=== PATIENT | female | born 1990 | race African-American/Black ===

== ENCOUNTER 2016-08-01 10:49 | Emergency (ER) | payer MEDICAID ==
[2016-08-01 11:11] VITALS: BP 110/70
[2016-08-01] MEDS ORDERED: Benzonatate 100 MG Cap PO ONE (12:05)
--- NOTE | 2016-08-01 12:07 | EDM.PDOC ---
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 In addition patient has been experiencing a dry cough keeping her up most hours of the evening. She did vomit times one today secondary to cough induced. She has not been taking any [id number] medications for the cough. She was seen by a provider at [facility] this past weekend placed on promethazine for nausea which she has been taking with some relief. She notes mild epigastric abdominal discomfort with coughing. She's noticed no change in appetite or worsening of discomfort with eating. She denies any fevers/chills, shortness of breath, chest pain, nausea/vomiting, diarrhea, constipation, vaginal bleeding, or abnormal vaginal discharge. She offers no complaints at this time. patient's last scheduled cycle was June 30, 2016. Concepcin date July 14, 2016. Gestational age of 4 weeks and 4 days. Due date is 04/16/17. 4 para 2 miscarriages one zero. 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 ED EXAM, GENERAL - Physical Exam Exam: See Below Exam Limited By: No Limitations General Appearance: Alert, WD/WN, No Apparent Distress Ears: Normal External Exam, Normal Canal, Hearing Grossly Normal, Normal TMs Nose: Normal Inspection, Normal Mucosa, No Blood Throat/Mouth: Normal Inspection, Normal Oropharynx, Normal Voice, No Airway Compromise Head: Atraumatic, Normocephalic Neck: Normal Inspection, Supple, Non-Tender, Full Range of Motion. No: Lymphadenopathy (L), Lymphadenopathy (R) Respiratory/Chest: No Respiratory Distress, Lungs Clear, Normal Breath Sounds, No Accessory Muscle Use, Chest Non-Tender Cardiovascular: Normal Peripheral Pulses, Regular Rate, Rhythm, No Murmur Peripheral Pulses: 2+: Radial (L) GI/Abdominal: Normal Bowel Sounds, Soft, No Organomegaly, No Distention, Tender (suprapubic region) Back Exam: Normal Inspection. No: CVA Tenderness (L), CVA Tenderness (R) Extremities: Normal Inspection Neurological: Alert, Oriented, CN II-XII Intact, Normal Cognition, No Motor/ Sensory Deficits Psychiatric: Normal Affect, Normal Mood Skin Exam: Warm, Dry, Intact, Normal Color Course - Vital Signs Last Recorded V/S: Last Vital Signs Temp 99.0 F 08/01/16 11:07 Pulse 79 08/01/16 11:07 Resp 18 08/01/16 11:07 BP 110/70 08/01/16 11:07 Pulse Ox 100 08/01/16 11:07 - Orders/Labs/Meds Orders: Active Orders 24 hr Category Date Time Status CULTURE URINE [RM] Stat Lab 08/01/16 13:19 Uncollected Labs: Laboratory Tests 08/01/16 Range/Units 11:55 Urine Color Yellow (Yellow) Urine Appearance Slt cloudy H (Clear) Urine pH 6.5 (5.0-8.0) Ur Specific Jones > or = 1.030 (1.005-1.030) Urine Protein 1+ H (Negative) Urine Glucose (UA) Negative (Negative) Urine Ketones Negative (Negative) Urine Occult Blood Negative (Negative) Urine Nitrite Negative (Negative) Urine Bilirubin Negative (Negative) Urine Urobilinogen 1.0 (0.2-1.0) Ur Leukocyte Esterase 1+ H (Negative) Urine RBC 5-10 H (0-5) /hpf Urine WBC 5-10 H (0-5) /hpf Urine WBC Clumps Not seen (NOT SEEN) /hpf Ur Epithelial Cells 20-30 H (0-5) /hpf Ur Transition Epith Cell 0-5 (0-5) Urine Bacteria Moderate H (FEW) /hpf Urine Mucus Few (FEW) /hpf Urine Yeast Not seen (NOT SEEN) Meds: Medications Discontinued Medications Generic Name Dose Route Start Last Admin Trade Name Freq PRN Reason Stop Dose Admin Benzonatate 100 mg 08/01/16 12:05 08/01/16 12:38 Tessalon Perles PO 08/01/16 12:06 100 mg ONETIME ONE Administration Nitrofurantoin Macrocrystals 100 mg 08/01/16 13:19 08/01/16 13:32 Macrobid PO 08/01/16 13:20 100 mg ONETIME ONE Administration - Re-Assessments/Exams Free Text/Narrative Re-Assessment/Exam: 08/01/16 12:06 Ordered Tessalon Perles 100 mg p.o., and UA. 08/01/16 13:23 UA revealed 6 Estrace 1+, rbc's 5-10, but he receives out of 10, epithelial 20-30, bacteria moderate. Findings are concerning for contamination. Urine culture has been obtained.order Macrobid 100 mg p.o. x1. We'll discharge patient home with instructions for UTI and also bronchitis. Prescription for Macrobid and Tessalon Perles were provided. Departure - Departure Time of Disposition: 13:24 Disposition: Home, Self-Care 01 Condition: good Clinical Impression: Bronchitis UTI (urinary tract infection) Qualifiers: Urinary tract infection type: site unspecified Hematuria presence: with hematuria Qualified Code(s): N39.0 - Urinary tract infection, site not specified - Discharge Information Prescriptions: Benzonatate [Tessalon Perle] 100 mg PO BID PRN #10 capsule PRN Reason: Cough Nitrofurantoin Monohyd/M-Cryst [Macrobid 100 mg Capsule] 100 mg PO BID #10 capsule Instructions: Urinary Tract Infection, Adult, Acute Bronchitis Referrals: PCP,None [Primary Care Provider] - Forms: ED Department Discharge, Return to Work/School Form Additional Instructions: Urinalysis came back with questions for possible contamination. Urine cultures was obtained. Due to symptoms and clinical findings we'll go ahead and treat you for a urinary tract infection with Macrobid 100 mg twice a day for 5 days. In addition respiratory complaints most likely viral and thus symptomatic treatment is appropriate. For the cough will utilize Tessalon Perles 100 mg twice a day as needed for cough. Push the fluids. Ensure adequate rest. Followup with primary care provider this coming week for reevaluation if symptoms persist. Return to you for any new worsening symptoms. - My Orders Last 24 Hours: My Active Orders 08/01/16 13:19 CULTURE URINE [RM] Stat - Assessment/Plan Last 24 Hours: My Active Orders 08/01/16 13:19 CULTURE URINE [RM] Stat
[2016-08-01] MEDS ORDERED: Nitrofurantoin Monohydrate/Macrocrystalline 100 MG Cap PO ONE (13:19)
== END 2016-08-01 13:40 | disposition home or self-care (01) ==
LOC: JD.ED 10:49
DX: O23.41 Unspecified infection of urinary tract in pregnancy, first trimester (principal); O99.511 Diseases of the respiratory system complicating pregnancy, first trimester; J40 Bronchitis, not specified as acute or chronic; Z3A.01 Less than 8 weeks gestation of pregnancy
CPT/HCPCS: 81001; 99284; A9270; 99283

== ENCOUNTER 2017-03-24 07:00 | Inpatient (IN) | payer MEDICAID ==
[2017-03-24] MEDS ORDERED: Ondansetron 4 MG/2 ML SDV IVPUSH PRN (07:06)
[2017-03-24] MEDS ORDERED: Sodium Chloride 0.9% 10 ML Syringe FLUSH PRN (07:06)
[2017-03-24] MEDS ORDERED: Ampicillin 2 GM in Sodium Chloride 0.9% 100 ML IV ONE (07:06)
[2017-03-24] MEDS ORDERED: Nalbuphine 20 MG/1 ML Amp IVPUSH PRN (07:06)
--- NOTE | 2017-03-24 07:11 | PCM.LDHP ---
L&D History of Present Illness - General Date of Service: 03/24/17 Admit Problem/Dx: Patient Status Order with Admit Dx/Problem 03/24/17 07:07 Patient Status [ADT] Routine Admission Diagnosis/Problem Admission Diagnosis/Problem High risk Source of Information: Patient History Limitations: Reports: No Limitations - History of Present Illness Introduction:: Patient is a 27 y/o at 38 6/7 wks presents for IOL. 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 She has completed 2 courses of weekly IM PCN injections for this diagnosis and currently is in her 3rd course due to a persistently elevated RPR titer. She has been seen by maternal medicine on multiple occasions and has had ultrasound assessments that show no concerning findings of congenital syphilis and her baby. On her most recent MFM scan did have a new finding of polyhydramnios. For above reason she presents for induction today. Is otherwise doing well. Has been having bothersome contractions for some time, but increased last night. No bleeding or fluid leaking. Notes good movement. 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 : 4 Para: 2 LMP (Approximate): Hematologic History: Reports: Blood Transfusion(s), Other (See Below) (Sickle cell trait) - Infectious Disease History Infectious Disease History: Reports: Other (See Below) (Syphilis) - Past Surgical History Female Surgical History: Reports: D&C Social & Family History - Tobacco Use Smoking Status *Q: Never Smoker Second Hand Smoke Exposure: No - Caffeine Use Caffeine Use: Reports: Soda - Alcohol Use Alcohol Use History: No - Recreational Drug Use Recreational Drug Use: No H&P Review of Systems - Review of Systems: Review Of Systems: See Below General: Reports: No Symptoms Pulmonary: Reports: No Symptoms Cardiovascular: Reports: No Symptoms Gastrointestinal: Reports: Abdominal Pain Genitourinary: Reports: No Symptoms Musculoskeletal: Reports: No Symptoms Psychiatric: Reports: No Symptoms Neurological: Reports: No Symptoms L&D Exam - Exam Exam: See Below - OB Specific Contraction Intensity: Irritability Movement: Active Heart Tones: Present Heart Tones per Min: 140 Heart Rate (FHR) Variability: Moderate (6-25 bmp) Presentation: Vertex - Miller Score Miller Score Cervix Position: Posterior Miller Score Consistency: Soft Miller Score Effacement: >80% Miller Score Dilation: 3-4 cm Miller Score 's Station: -2 Miller Score Total: 8 - Exam General: Alert, Oriented, Cooperative Lungs: Clear to Auscultation, Normal Respiratory Effort Cardiovascular: Regular Rate, Regular Rhythm GI/Abdominal Exam: Soft, Non-Tender Genitourinary: Normal external exam Extremities: Normal Inspection Skin: Warm, Dry, Intact - Patient Data Result Diagrams: 03/24/17 07:27 - Problem List (1) Syphilis of mother during SNOMED Code(s): 14383954 ICD Code: O98.119 - SYPHILIS COMPLICATING , UNSPECIFIED TRIMESTER Status: Acute Current Visit: Yes (2) Polyhydramnios affecting SNOMED Code(s): 86803584 ICD Code: O40.9XX0 - POLYHYDRAMNIOS, UNSP TRIMESTER, NOT APPLICABLE OR UNSP Status: Acute Current Visit: Yes (3) GBS (group B Streptococcus carrier), +RV culture, currently SNOMED Code(s): 8978116252991, 2575054491051 ICD Code: O99.820 - STREPTOCOCCUS B CARRIER STATE COMPLICATING Status: Acute Current Visit: Yes Problem List Initiated/Reviewed/Updated: Yes Orders Last 24hrs: Active Orders 24 hr Category Date Time Status Patient Status [ADT] Routine ADT 03/24/17 07:07 Ordered Activity as Tolerated [RC] PFP Care 03/24/17 07:06 Ordered Communication Order [RC] ASDIRECTED Care 03/24/17 07:06 Ordered Communication Order [RC] ASDIRECTED Care 03/24/17 07:06 Ordered Communication Order [RC] ASDIRECTED Care 03/24/17 07:06 Ordered Heart Tones [RC] ASDIRECTED Care 03/24/17 07:09 Ordered Monitoring [RC] INTERMITTENT Care 03/24/17 07:06 Ordered Notify Provider [RC] ASDIRECTED Care 03/24/17 07:06 Ordered Notify Provider [RC] PFP Care 03/24/17 07:06 Ordered Notify Provider [RC] PRN Care 03/24/17 07:06 Ordered Peripheral IV Care [RC] . DIRECTED Care 03/24/17 07:09 Ordered Vaginal Exam [RC] ASDIRECTED Care 03/24/17 07:06 Ordered Vital Signs [RC] ASDIRECTED Care 03/24/17 07:06 Ordered Vital Signs [RC] PER UNIT ROUTINE Care 03/24/17 07:06 Ordered Regular Diet [DIET] Diet 03/24/17 Breakfast Ordered CBC W/O DIFF,HEMOGRAM [HEME] Routine Lab 03/24/17 07:06 Ordered TYPE AND SCREEN [BBK] Routine Lab 03/24/17 07:06 Ordered Ampicillin 1 gm Med 03/24/17 07:15 Ordered Sodium Chloride 0.9% [Normal Saline] 100 ml IV Q4H Ampicillin 2 gm Med 03/24/17 07:06 Ordered Sodium Chloride 0.9% [Normal Saline] 100 ml IV ONETIME Lactated Ringers [Ringers, Lactated] 1,000 ml Med 03/24/17 07:15 Ordered IV ASDIRECTED Nalbuphine [Nubain] Med 03/24/17 07:06 Ordered 10 mg IVPUSH Q2H PRN Ondansetron [Zofran] Med 03/24/17 07:06 Ordered 4 mg IVPUSH Q4H PRN Oxytocin/Lactated Ringers [Pitocin in LR 10 Units/1,000 Med 03/24/17 07:15 Ordered ML] 10 unit in 1,000 ml IV .CONTINUOUS Oxytocin/Lactated Ringers [Pitocin in LR 10 Units/1,000 Med 03/24/17 07:15 Ordered ML] 10 unit in 1,000 ml IV TITRATE Sodium Chloride 0.9% [Saline Flush] Med 03/24/17 07:06 Ordered 10 ml FLUSH ASDIRECTED PRN Electronic Heart Tones Ext w TOCO [WOMSER] Oth 03/24/17 07:06 Ordered Routine Electronic Heart Tones Internal [WOMSER] Per Unit Oth 03/24/17 07:06 Ordered Routine Peripheral IV Insertion Adult [OM.PC] Routine Oth 03/24/17 07:06 Ordered Resuscitation Status Routine Resus Stat 03/24/17 07:06 Ordered Assessment/Plan Comment:: 27 y/o at 38 6/7 wks presents for IOL * CBC, T&S * GBS positive. Will start Ampicillin for GBS prophylaxis * Pitocin to be started. AROM when possible * Will need 3rd dose of IM PCN tomorrow to finish treatment course for Syphilis
[2017-03-24] MEDS ORDERED: Oxytocin/Lactated Ringers 10 UNIT/1,000 ML BAG IV SCH (07:15)
[2017-03-24] MEDS: Lactated Ringers 1,000 ML IV SCH ×2 (07:50→18:25)
[2017-03-24] MEDS: Ampicillin 1 GM in Sodium Chloride 0.9% 100 ML IV SCH ×2 (11:27→15:17)
[2017-03-24] MEDS ORDERED: fentaNYL 100 MCG/2 ML SDV EPIDUR PRN (14:12)
[2017-03-24] MEDS ORDERED: ePHEDrine 50 MG/ML SDV IVPUSH PRN (14:12)
[2017-03-24] MEDS ORDERED: diphenhydrAMINE 50 MG/ML SDV IVPUSH PRN (14:12)
[2017-03-24] MEDS ORDERED: Bupivacaine/fentaNYL/NS 100 ML Bag EPIDUR SCH (14:15)
--- NOTE | 2017-03-24 16:45 | PCM.PNLD ---
Labor Progress Note - VS & Meds Vital Signs: Last Vital Signs Temp 36.8 C 03/24/17 07:35 Pulse 96 03/24/17 07:35 Resp 16 03/24/17 07:35 BP 120/62 03/24/17 07:35 Pulse Ox 99 03/24/17 07:35 Active Medications: Current Medications Diphenhydramine HCl (Benadryl) 25 mg IVPUSH Q6H PRN PRN Reason: Itching Ephedrine Sulfate (Ephedrine Sulfate) 5 mg IVPUSH ASDIRECTED PRN PRN Reason: HYPOTENTSION Fentanyl (Sublimaze) 100 mcg EPIDUR Q3H PRN PRN Reason: PAIN Fentanyl/Bupivacaine HCl (Fentanyl/Bupivacaine/Ns 2 Mcg-0.125% 100 Ml) 100 ml EPIDUR ASDIRECTED CYNTHIA Ampicillin Sodium 1 gm/ Sodium (Chloride) 100 mls @ 200 mls/hr IV Q4H CYNTHIA Last Admin: 03/24/17 15:17 Dose: 200 mls/hr Lactated Ringer's (Ringers, Lactated) 1,000 mls @ 40 mls/hr IV ASDIRECTED CYNTHIA Last Admin: 03/24/17 07:50 Dose: 40 mls/hr Oxytocin/Lactated Ringer's (Pitocin In Lr 10 Units/1,000 Ml) 10 unit in 1,000 mls @ 12 mls/hr IV TITRATE CYNTHIA; 2 MUNITS/MIN PRN Reason: Protocol Last Titration: 03/24/17 16:17 Dose: 11 munits/min, 66 mls/hr Oxytocin/Lactated Ringer's (Pitocin In Lr 10 Units/1,000 Ml) 10 unit in 1,000 mls @ 500 mls/hr IV .CONTINUOUS CYNTHIA Nalbuphine HCl (Nubain) 10 mg IVPUSH Q2H PRN PRN Reason: Pain (moderate 4-6) Ondansetron HCl (Zofran) 4 mg IVPUSH Q4H PRN PRN Reason: Nausea/Vomiting Sodium Chloride (Saline Flush) 10 ml FLUSH ASDIRECTED PRN PRN Reason: Keep Vein Open Discontinued Medications Ampicillin Sodium 2 gm/ Sodium (Chloride) 100 mls @ 200 mls/hr IV ONETIME ONE Stop: 03/24/17 07:35 Last Admin: 03/24/17 07:50 Dose: 200 mls/hr - Uterine Contractions Uterine Monitoring Mode: External [place] Contraction Intensity: Moderate - Monitoring Monitor Mode: External Ultrasound Heart Rate (FHR) Baseline: 135 Heart Rate (FHR) Variability: Moderate (6-25 bmp) Accelerations: Present, 15x15 Decelerations: None Strip Review: Category I - Vaginal Exam Dilation (cm): 4 Effacement (Percent): 80 Station: -2 Cervical Position: Posterior Sterile Vaginal Exam Performed By: Zaira Medina - Labor Progress (Free Text) Labor Progress: Doing well. Pitocin at 11. S/p 3 doses of Ampicillin. AROM performed with release of large amount of clear fluid. Continue present management.
--- NOTE | 2017-03-24 16:45 | PCM.PNLD ---
Labor Progress Note - VS & Meds Vital Signs: Last Vital Signs Temp 36.8 C 03/24/17 07:35 Pulse 96 03/24/17 07:35 Resp 16 03/24/17 07:35 BP 120/62 03/24/17 07:35 Pulse Ox 99 03/24/17 07:35 Active Medications: Current Medications Diphenhydramine HCl (Benadryl) 25 mg IVPUSH Q6H PRN PRN Reason: Itching Ephedrine Sulfate (Ephedrine Sulfate) 5 mg IVPUSH ASDIRECTED PRN PRN Reason: HYPOTENTSION Fentanyl (Sublimaze) 100 mcg EPIDUR Q3H PRN PRN Reason: PAIN Fentanyl/Bupivacaine HCl (Fentanyl/Bupivacaine/Ns 2 Mcg-0.125% 100 Ml) 100 ml EPIDUR ASDIRECTED CYNTHIA Ampicillin Sodium 1 gm/ Sodium (Chloride) 100 mls @ 200 mls/hr IV Q4H CYNTHIA Last Admin: 03/24/17 15:17 Dose: 200 mls/hr Lactated Ringer's (Ringers, Lactated) 1,000 mls @ 40 mls/hr IV ASDIRECTED CYNTHIA Last Admin: 03/24/17 07:50 Dose: 40 mls/hr Oxytocin/Lactated Ringer's (Pitocin In Lr 10 Units/1,000 Ml) 10 unit in 1,000 mls @ 12 mls/hr IV TITRATE CYNTHIA; 2 MUNITS/MIN PRN Reason: Protocol Last Titration: 03/24/17 16:17 Dose: 11 munits/min, 66 mls/hr Oxytocin/Lactated Ringer's (Pitocin In Lr 10 Units/1,000 Ml) 10 unit in 1,000 mls @ 500 mls/hr IV .CONTINUOUS CYNTHIA Nalbuphine HCl (Nubain) 10 mg IVPUSH Q2H PRN PRN Reason: Pain (moderate 4-6) Ondansetron HCl (Zofran) 4 mg IVPUSH Q4H PRN PRN Reason: Nausea/Vomiting Sodium Chloride (Saline Flush) 10 ml FLUSH ASDIRECTED PRN PRN Reason: Keep Vein Open Discontinued Medications Ampicillin Sodium 2 gm/ Sodium (Chloride) 100 mls @ 200 mls/hr IV ONETIME ONE Stop: 03/24/17 07:35 Last Admin: 03/24/17 07:50 Dose: 200 mls/hr - Uterine Contractions Uterine Monitoring Mode: External [place] Contraction Intensity: Mild to Moderate - Monitoring Monitor Mode: External Ultrasound Heart Rate (FHR) Baseline: 135 Heart Rate (FHR) Variability: Moderate (6-25 bmp) Accelerations: Present, 15x15 Decelerations: None Strip Review: Category I - Vaginal Exam Dilation (cm): 3-4 Effacement (Percent): 80 Station: -2 Cervical Position: Posterior Sterile Vaginal Exam Performed By: Zaira Medina - Labor Progress (Free Text) Labor Progress: Doing well. Feeling some pain with contractions. Attempted to perform AROM, but station somewhat more ballotable at this time and patient doesn't tolerate exam well. Will continue with pitocin (currently at 5) and try again at next assessment.
[2017-03-24] MEDS: Oxytocin/Lactated Ringers 10 UNIT/1,000 ML BAG IV SCH ×2 (19:19→20:02)
[2017-03-24] MEDS ORDERED: Misoprostol 200 MCG Tab ONE (19:25)
[2017-03-24] MEDS ORDERED: Misoprostol 200 MCG Tab PO STA (19:41)
--- NOTE | 2017-03-24 19:51 | PCM.DEL ---
L & D Note - General Info Date of Service: 03/24/17 - Delivery Note Labor: Induced by ARM, Induced by Oxytocin Delivery Outcome: Livebirth Infant Delivery Method: Spontaneous Vaginal Delivery-Single Infant Delivery Mode: Spontaneous Presentation: Right Occiput Anterior (LUPILLO) Nuchal Cord: None Anesthesia Type: None Amniotic Fluid Description: Clear Episiotomy Type: None Laceration: None Placenta: Intact, Spontaneous Cord: 3 Vessels Estimated Blood Loss: 600 Resuscitation Needed: Yes [place]: Suctioned, Bulb Syringe, Stimulated, Warmed, [place] Used, Warmer Used Score 1 min: 8 Score 5 min: 9 Delivery Comments (Free Text/Narrative):: Patient found to be complete and began pushing. With maternal pushing effort head delivered from an LUPILLO presentation. No nuchal cord present. With gentle downward traction the shoulders and body delivered. placed on maternal abdomen. Cord clamped and cut. Cord blood obtained. Placenta allowed time to separate and expelled. She did have brisk bleeding and so was given 600 mcg of buccal cytotec. Bleeding responded well to this, IV pitocin, and aggressive fundal massage. - Patient Data Vitals - Most Recent: Last Vital Signs Temp 36.8 C 03/24/17 07:35 Pulse 96 03/24/17 07:35 Resp 16 03/24/17 07:35 BP 120/62 03/24/17 07:35 Pulse Ox 99 03/24/17 07:35 Weight - Most Recent: 80.739 kg I&O - Last 24 Hours: Intake & Output 03/24/17 03/24/17 03/24/17 06:59 14:59 22:59 Intake Total 120 180 Balance 120 180 Lab Results Last 24 Hours: Laboratory Results - last 24 hr 03/24/17 03/24/17 Range/Units 07:27 07:27 WBC 7.32 (3.98-10.04) K/mm3 RBC 3.99 (3.98-5.22) M/mm3 Hgb 11.0 L (11.2-15.7) gm/L Hct 33.3 L (34.1-44.9) % MCV 83.5 (79.4-94.8) fl MCH 27.6 (25.6-32.2) pg MCHC 33.0 (32.2-35.5) g/dl RDW Std Deviation 42.2 (36.4-46.3) fL Plt Count 199 (182-369) K/mm3 MPV 9.5 (9.4-12.3) fl Blood Type O POSITIVE Gel Antibody Screen Positive Med Orders - Current: Current Medications Diphenhydramine HCl (Benadryl) 25 mg IVPUSH Q6H PRN PRN Reason: Itching Ephedrine Sulfate (Ephedrine Sulfate) 5 mg IVPUSH ASDIRECTED PRN PRN Reason: HYPOTENTSION Fentanyl (Sublimaze) 100 mcg EPIDUR Q3H PRN PRN Reason: PAIN Fentanyl/Bupivacaine HCl (Fentanyl/Bupivacaine/Ns 2 Mcg-0.125% 100 Ml) 100 ml EPIDUR ASDIRECTED CYNTHIA Ampicillin Sodium 1 gm/ Sodium (Chloride) 100 mls @ 200 mls/hr IV Q4H CYNTHIA Last Admin: 03/24/17 15:17 Dose: 200 mls/hr Lactated Ringer's (Ringers, Lactated) 1,000 mls @ 40 mls/hr IV ASDIRECTED CYNTHIA Last Admin: 03/24/17 18:25 Dose: 40 mls/hr Oxytocin/Lactated Ringer's (Pitocin In Lr 10 Units/1,000 Ml) 10 unit in 1,000 mls @ 12 mls/hr IV TITRATE CYNTHIA; 2 MUNITS/MIN PRN Reason: Protocol Last Titration: 03/24/17 18:24 Dose: 0 munits/min, 0 mls/hr Oxytocin/Lactated Ringer's (Pitocin In Lr 10 Units/1,000 Ml) 10 unit in 1,000 mls @ 500 mls/hr IV .CONTINUOUS CYNTHIA Nalbuphine HCl (Nubain) 10 mg IVPUSH Q2H PRN PRN Reason: Pain (moderate 4-6) Last Admin: 03/24/17 17:47 Dose: 10 mg Ondansetron HCl (Zofran) 4 mg IVPUSH Q4H PRN PRN Reason: Nausea/Vomiting Sodium Chloride (Saline Flush) 10 ml FLUSH ASDIRECTED PRN PRN Reason: Keep Vein Open Discontinued Medications Ampicillin Sodium 2 gm/ Sodium (Chloride) 100 mls @ 200 mls/hr IV ONETIME ONE Stop: 03/24/17 07:35 Last Admin: 03/24/17 07:50 Dose: 200 mls/hr Misoprostol (Cytotec) Confirm Administered Dose 600 mcg .ROUTE .STK-MED ONE Stop: 03/24/17 19:26 Misoprostol (Cytotec) 600 mcg PO NOW STA Stop: 03/24/17 19:42 - Problem List & Annotations (1) Syphilis of mother during SNOMED Code(s): 71299656 Code(s): O98.119 - SYPHILIS COMPLICATING , UNSPECIFIED TRIMESTER Status: Acute Current Visit: Yes (2) Polyhydramnios affecting SNOMED Code(s): 24666868 Code(s): O40.9XX0 - POLYHYDRAMNIOS, UNSP TRIMESTER, NOT APPLICABLE OR UNSP Status: Acute Current Visit: Yes (3) GBS (group B Streptococcus carrier), +RV culture, currently SNOMED Code(s): 1179075155304, 5815500300594 Code(s): O99.820 - STREPTOCOCCUS B CARRIER STATE COMPLICATING Status: Acute Current Visit: Yes (4) Vaginal delivery SNOMED Code(s): 966813072 Code(s): O80 - ENCOUNTER FOR FULL-TERM UNCOMPLICATED DELIVERY Status: Acute Current Visit: Yes (5) hemorrhage SNOMED Code(s): 65787232 Code(s): O72.1 - OTHER IMMEDIATE HEMORRHAGE Status: Acute Current Visit: Yes Qualifiers: hemorrhage type: other immediate Qualified Code(s): O72.1 - Other immediate hemorrhage - Problem List Review Problem List Initiated/Reviewed/Updated: Yes - My Orders Last 24 Hours: My Active Orders 03/24/17 07:06 Activity as Tolerated [RC] PFP Communication Order [RC] ASDIRECTED Communication Order [RC] ASDIRECTED Communication Order [RC] ASDIRECTED Monitoring [RC] INTERMITTENT Notify Provider [RC] ASDIRECTED Notify Provider [RC] PFP Notify Provider [RC] PRN Vaginal Exam [RC] ASDIRECTED Vital Signs [RC] ASDIRECTED Nalbuphine [Nubain] 10 mg IVPUSH Q2H PRN Ondansetron [Zofran] 4 mg IVPUSH Q4H PRN Sodium Chloride 0.9% [Saline Flush] 10 ml FLUSH ASDIRECTED PRN Electronic Heart Tones Ext w TOCO [WOMSER] Routine Electronic Heart Tones Internal [WOMSER] Per Unit Routine Peripheral IV Insertion Adult [OM.PC] Routine Resuscitation Status Routine 03/24/17 07:07 Patient Status [ADT] Routine 03/24/17 07:09 Heart Tones [RC] ASDIRECTED Peripheral IV Care [RC] . DIRECTED 03/24/17 07:15 Lactated Ringers [Ringers, Lactated] 1,000 ml IV ASDIRECTED Oxytocin/Lactated Ringers [Pitocin in LR 10 Units/1,000 ML] 10 unit in 1,000 ml IV .CONTINUOUS Oxytocin/Lactated Ringers [Pitocin in LR 10 Units/1,000 ML] 10 unit in 1,000 ml IV TITRATE 03/24/17 07:27 ANTIBODY IDENTIFICATION [BBK] Routine TYPE AND SCREEN [BBK] Routine 03/24/17 11:00 Ampicillin 1 gm Sodium Chloride 0.9% [Normal Saline] 100 ml IV Q4H 03/24/17 19:41 Patient Status Manage Transfer [TRANSFER] Routine 03/24/17 Breakfast Regular Diet [DIET] - Assessment Assessment:: 27 y/o G4 now P3013 PPD#0 from at 38 6/7 wks - Plan Plan:: * Routine cares * Will need 3rd dose of IM PCN tomorrow to finish treatment course for Syphilis * Anticipate discharge home in 1-2 days
[2017-03-24] MEDS ORDERED: Lanolin 100% Cream 7 GM Tube TOP PRN (19:57)
[2017-03-24] MEDS ORDERED: Acetaminophen 325 MG Tab PO PRN (19:57)
[2017-03-24] MEDS ORDERED: Docusate Sodium 100 MG Cap PO PRN (19:57)
[2017-03-24] MEDS ORDERED: Witch Hazel Medicated Pads 100/Jar TOP PRN (19:57)
[2017-03-24] MEDS ORDERED: Benzocaine/Menthol 20%-0.5% Spray 56 GM Canister TOP PRN (19:57)
[2017-03-24] MEDS: Ibuprofen 600 MG Tab PO PRN (20:11)
[2017-03-25] MEDS: Ibuprofen 600 MG Tab PO PRN ×3 (03:17→15:43)
--- NOTE | 2017-03-25 08:52 | PCM.PNPP ---
- General Info Date of Service: 03/25/17 Functional Status: Reports: Pain Controlled, Tolerating Diet, Ambulating, Urinating - Review of Systems General: Reports: No Symptoms Pulmonary: Reports: No Symptoms Cardiovascular: Reports: No Symptoms Gastrointestinal: Reports: No Symptoms Genitourinary: Reports: No Symptoms Musculoskeletal: Reports: No Symptoms - Patient Data Vital Signs - Most Recent: Last Vital Signs Temp 36.3 C 03/25/17 03:16 Pulse 90 03/25/17 03:16 Resp 15 03/25/17 03:16 BP 93/52 L 03/25/17 03:16 Pulse Ox 98 03/25/17 03:16 Weight - Most Recent: 80.739 kg I&O - Last 24 Hours: Intake & Output 03/24/17 03/25/17 03/25/17 22:59 06:59 14:59 Intake Total 180 1999 Balance 180 1999 Med Orders - Current: Current Medications Acetaminophen (Tylenol) 650 mg PO Q4H PRN PRN Reason: mild pain or fever Last Admin: 03/24/17 20:11 Dose: 650 mg Benzocaine/Menthol (Dermoplast Pain Relief [place]) 0 gm TOP ASDIRECTED PRN PRN Reason: Perineal Comfort Measure Last Admin: 03/24/17 20:10 Dose: 1 canister Docusate Sodium (Colace) 100 mg PO BID PRN PRN Reason: Constipation Emollient Ointment (Lansinoh Hpa) 0 gm TOP ASDIRECTED PRN PRN Reason: Sore Nipples Ibuprofen (Motrin) 600 mg PO Q6H PRN PRN Reason: Mild pain or fever Last Admin: 03/25/17 03:17 Dose: 600 mg Penicillin G Benzathine (Bicillin L-A) 2.4 millunits IM ONETIME ONE Stop: 03/25/17 15:01 Witch Shonna (Tucks) 1 pad TOP ASDIRECTED PRN PRN Reason: Hemorrhoid pain Last Admin: 03/24/17 20:10 Dose: 1 tub Discontinued Medications Diphenhydramine HCl (Benadryl) 25 mg IVPUSH Q6H PRN PRN Reason: Itching Ephedrine Sulfate (Ephedrine Sulfate) 5 mg IVPUSH ASDIRECTED PRN PRN Reason: HYPOTENTSION Fentanyl (Sublimaze) 100 mcg EPIDUR Q3H PRN PRN Reason: PAIN Fentanyl/Bupivacaine HCl (Fentanyl/Bupivacaine/Ns 2 Mcg-0.125% 100 Ml) 100 ml EPIDUR ASDIRECTED CYNTHIA Ampicillin Sodium 2 gm/ Sodium (Chloride) 100 mls @ 200 mls/hr IV ONETIME ONE Stop: 03/24/17 07:35 Last Admin: 03/24/17 07:50 Dose: 200 mls/hr Ampicillin Sodium 1 gm/ Sodium (Chloride) 100 mls @ 200 mls/hr IV Q4H CYNTHIA Last Admin: 03/24/17 15:17 Dose: 200 mls/hr Lactated Ringer's (Ringers, Lactated) 1,000 mls @ 40 mls/hr IV ASDIRECTED CYNTHIA Last Admin: 03/24/17 18:25 Dose: 40 mls/hr Oxytocin/Lactated Ringer's (Pitocin In Lr 10 Units/1,000 Ml) 10 unit in 1,000 mls @ 12 mls/hr IV TITRATE CYNTHIA; 2 MUNITS/MIN PRN Reason: Protocol Last Titration: 03/24/17 18:24 Dose: 0 munits/min, 0 mls/hr Oxytocin/Lactated Ringer's (Pitocin In Lr 10 Units/1,000 Ml) 10 unit in 1,000 mls @ 500 mls/hr IV .CONTINUOUS CYNTHIA Last Admin: 03/24/17 20:02 Dose: 500 mls/hr Misoprostol (Cytotec) Confirm Administered Dose 600 mcg .ROUTE .STK-MED ONE Stop: 03/24/17 19:26 Last Admin: 03/24/17 19:23 Dose: 600 mcg Misoprostol (Cytotec) 600 mcg PO NOW STA Stop: 03/24/17 19:42 Nalbuphine HCl (Nubain) 10 mg IVPUSH Q2H PRN PRN Reason: Pain (moderate 4-6) Last Admin: 03/24/17 17:47 Dose: 10 mg Ondansetron HCl (Zofran) 4 mg IVPUSH Q4H PRN PRN Reason: Nausea/Vomiting Sodium Chloride (Saline Flush) 10 ml FLUSH ASDIRECTED PRN PRN Reason: Keep Vein Open - Interaction Disposition, : [place] in Room with Family Infant Interaction: Holding Infant Feeding: Bottle Fed Infant Support Person: Significant Other - Recovery Exam Fundal Tone: Firm Fundal Level: At Umbilicus Fundal Placement: Midline Lochia Amount: Small Lochia Color: Rubra/Red Perineum Description: Intact, Minimal Bruising/Swelling Episiotomy/Laceration: None Bladder Status: Voiding - Exam General: Alert, Oriented, Cooperative GI/Abdominal Exam: Soft, Non-Tender Extremities: Normal Inspection Skin: Warm, Dry, Intact - Problem List & Annotations (1) Syphilis of mother during SNOMED Code(s): 51521037 Code(s): O98.119 - SYPHILIS COMPLICATING , UNSPECIFIED TRIMESTER Status: Acute Current Visit: Yes (2) Polyhydramnios affecting SNOMED Code(s): 64833614 Code(s): O40.9XX0 - POLYHYDRAMNIOS, UNSP TRIMESTER, NOT APPLICABLE OR UNSP Status: Acute Current Visit: Yes (3) GBS (group B Streptococcus carrier), +RV culture, currently SNOMED Code(s): 7000230785940, 5842025521659 Code(s): O99.820 - STREPTOCOCCUS B CARRIER STATE COMPLICATING Status: Acute Current Visit: Yes (4) Vaginal delivery SNOMED Code(s): 800958571 Code(s): O80 - ENCOUNTER FOR FULL-TERM UNCOMPLICATED DELIVERY Status: Acute Current Visit: Yes (5) hemorrhage SNOMED Code(s): 76038873 Code(s): O72.1 - OTHER IMMEDIATE HEMORRHAGE Status: Acute Current Visit: Yes Qualifiers: hemorrhage type: other immediate Qualified Code(s): O72.1 - Other immediate hemorrhage - Problem List Review Problem List Initiated/Reviewed/Updated: Yes - My Orders Last 24 Hours: My Active Orders 03/24/17 19:57 Activity as Tolerated [RC] PER UNIT ROUTINE Vital Signs [RC] 04,12,20 Acetaminophen [Tylenol] 650 mg PO Q4H PRN Benzocaine/Menthol [Dermoplast Pain Relief [place]] See Dose Instructions TOP ASDIRECTED PRN Docusate Sodium [Colace] 100 mg PO BID PRN Ibuprofen [Motrin] 600 mg PO Q6H PRN Lanolin [Lansinoh HPA] See Dose Instructions TOP ASDIRECTED PRN Witch Shonna [Tucks] 1 pad TOP ASDIRECTED PRN Assess Lochia [WOMSER] Per Unit Routine Assess Uterine Involution [WOMSER] Per Unit Routine Breast Pump [WOMSER] Per Unit Routine Heat Therapy [OM.PC] PRN Ice Therapy [OM.PC] Per Unit Routine Perineal Care [OM.PC] Per Unit Routine Peripheral IV Discontinue [OM.PC] Routine Sitz Bath [OM.PC] Per Unit Routine 03/24/17 Dinner Regular Diet [DIET] 03/25/17 15:00 Penicillin G Benzathine [Bicillin L-A] 2.4 millunits IM ONETIME ONE 03/25/17 19:57 Heat Therapy [OM.PC] PRN - Assessment Assessment:: 27 y/o G4 now P3013 PPD#1 from at 38 6/7 wks - Plan Plan:: * Routine cares * Bottle feeding * Will need 3rd dose of IM PCN today to finish treatment course for Syphilis. Will follow up with ID . * Anticipate discharge home today vs tomorrow
[2017-03-25] MEDS ORDERED: Penicillin G Benzathine 1,200,000 Units/2 ML Syringe IM ONE (15:00)
[2017-03-26] MEDS: Ibuprofen 600 MG Tab PO PRN ×2 (04:06→12:44)
--- NOTE | 2017-03-26 09:28 | PCM.DCSUM1 ---
Discharge Summary - Hospital Course Free Text/Narrative:: Patient is a 27 year old multiparous female who delivered 2 days ago. was complicated by syphilis for which she received antibiotic therapy. The patient also had group B strep positive status. was, K and also by hydramnios. She delivered a viable, hurley, female with Apgars of 8 and 9 on 03/24/2017. Patient did have some Cytotec 600 g to facilitate uterine tone and decrease bleeding after delivery. She is doing well now. Baby is on antibiotics for a full 10 days and will be staying in the hospital. Mother will be discharged home. period is unremarkable. Patient is bottle feeding. Her vital signs been stable. She has had minimal lochia. She is ambulating well, voiding well and has no significant concerns. She is desiring discharge from hospital as her 5-year-old like her to come home. - Discharge Data Discharge Date: 03/26/17 Discharge Disposition: Home, Self-Care 01 Condition: Good - Patient Instructions Diet: Regular Diet as Tolerated Activity: As Tolerated (No intercourse or tampons until bleeding resolves) Driving: Do Not Drive (2 days) Showering/Bathing: May Shower (May take a bath) Notify Provider of: Fever, Increased Pain, Swelling and Redness, Nausea and/or Vomiting - Discharge Plan Home Medications: Home Meds #103/Iron Fumarate/Fa [ ] 1 dose PO DAILY 08/01/16 [ History] Acyclovir [Zovirax] 1 tab PO Q12HR 03/24/17 [History] Acetaminophen [Tylenol] 650 mg PO Q4H PRN tablet 03/26/17 [Rx] Ibuprofen [IJD: Ibuprofen] 600 mg PO Q6H PRN tablet 03/26/17 [Rx] Referrals: Zaira Medina MD [Primary Care Provider] - (Return to clinic Dr. Medina6 weeks) - Discharge Summary/Plan Comment DC Time >30 min.: No Discharge Summary/Plan Comment: Discharge instructions: 1. Discharge home 2. Diet, activity and follow-up discussed with patient. Recommend regular diet with increased calories and calcium. 3. Precautions given concern increased pain, bleeding, temperature, signs/ symptoms of DVT/PE. 4. Medications per home medication was printed, discussed with and given to the patient. 5. Return to clinic-Dr. Medina at [facility] in 6 weeks. Diagnosis: 1. Term -delivered 2. Syphilis-treated 3. Group B strep positive status Condition: Good - Patient Data Vitals - Most Recent: Last Vital Signs Temp 36.7 C 03/26/17 04:06 Pulse 78 03/26/17 04:06 Resp 13 03/26/17 04:06 BP 104/66 03/26/17 04:06 Pulse Ox 100 03/26/17 04:06 Weight - Most Recent: 80.739 kg I&O - Last 24 hours: Intake & Output 03/25/17 03/26/17 03/26/17 22:59 06:59 14:59 Intake Total 420 Balance 420 Lab Results - Last 24 hrs: Laboratory Results - last 24 hr 03/25/17 Range/Units 14:00 RPR Titer 1:32 RPR Reactive H (NONREACTIVE) Med Orders - Current: Current Medications Acetaminophen (Tylenol) 650 mg PO Q4H PRN PRN Reason: mild pain or fever Last Admin: 03/24/17 20:11 Dose: 650 mg Benzocaine/Menthol (Dermoplast Pain Relief [place]) 0 gm TOP ASDIRECTED PRN PRN Reason: Perineal Comfort Measure Last Admin: 03/24/17 20:10 Dose: 1 canister Docusate Sodium (Colace) 100 mg PO BID PRN PRN Reason: Constipation Emollient Ointment (Lansinoh Hpa) 0 gm TOP ASDIRECTED PRN PRN Reason: Sore Nipples Ibuprofen (Motrin) 600 mg PO Q6H PRN PRN Reason: Mild pain or fever Last Admin: 03/26/17 04:06 Dose: 600 mg Witch Shonna (Tucks) 1 pad TOP ASDIRECTED PRN PRN Reason: Hemorrhoid pain Last Admin: 03/24/17 20:10 Dose: 1 tub Discontinued Medications Diphenhydramine HCl (Benadryl) 25 mg IVPUSH Q6H PRN PRN Reason: Itching Ephedrine Sulfate (Ephedrine Sulfate) 5 mg IVPUSH ASDIRECTED PRN PRN Reason: HYPOTENTSION Fentanyl (Sublimaze) 100 mcg EPIDUR Q3H PRN PRN Reason: PAIN Fentanyl/Bupivacaine HCl (Fentanyl/Bupivacaine/Ns 2 Mcg-0.125% 100 Ml) 100 ml EPIDUR ASDIRECTED CYNTHIA Ampicillin Sodium 2 gm/ Sodium (Chloride) 100 mls @ 200 mls/hr IV ONETIME ONE Stop: 03/24/17 07:35 Last Admin: 03/24/17 07:50 Dose: 200 mls/hr Ampicillin Sodium 1 gm/ Sodium (Chloride) 100 mls @ 200 mls/hr IV Q4H CYNTHIA Last Admin: 03/24/17 15:17 Dose: 200 mls/hr Lactated Ringer's (Ringers, Lactated) 1,000 mls @ 40 mls/hr IV ASDIRECTED CYNTHIA Last Admin: 03/24/17 18:25 Dose: 40 mls/hr Oxytocin/Lactated Ringer's (Pitocin In Lr 10 Units/1,000 Ml) 10 unit in 1,000 mls @ 12 mls/hr IV TITRATE CYNTHIA; 2 MUNITS/MIN PRN Reason: Protocol Last Titration: 03/24/17 18:24 Dose: 0 munits/min, 0 mls/hr Oxytocin/Lactated Ringer's (Pitocin In Lr 10 Units/1,000 Ml) 10 unit in 1,000 mls @ 500 mls/hr IV .CONTINUOUS CYNTHIA Last Admin: 03/24/17 20:02 Dose: 500 mls/hr Misoprostol (Cytotec) Confirm Administered Dose 600 mcg .ROUTE .STK-MED ONE Stop: 03/24/17 19:26 Last Admin: 03/24/17 19:23 Dose: 600 mcg Misoprostol (Cytotec) 600 mcg PO NOW STA Stop: 03/24/17 19:42 Nalbuphine HCl (Nubain) 10 mg IVPUSH Q2H PRN PRN Reason: Pain (moderate 4-6) Last Admin: 03/24/17 17:47 Dose: 10 mg Ondansetron HCl (Zofran) 4 mg IVPUSH Q4H PRN PRN Reason: Nausea/Vomiting Penicillin G Benzathine (Bicillin L-A) 2.4 millunits IM ONETIME ONE Stop: 03/25/17 15:01 Last Admin: 03/25/17 15:21 Dose: 2.4 millunits Sodium Chloride (Saline Flush) 10 ml FLUSH ASDIRECTED PRN PRN Reason: Keep Vein Open *Q Meaningful Use (DIS) - VTE *Q VTE Criteria *Q: - Stroke *Q Stroke Criteria *Q: - AMI *Q AMI Criteria *Q:
[2017-03-26 13:57] VITALS: BP 126/67
== END 2017-03-26 14:45 | disposition home or self-care (01) | DRG 774 ==
LOC: JD.OBCHECK 07:00 → JD.OB 07:07 → OBSVTOIN 19:19 → JD.OB 19:19
PROVIDERS: ADMIT Obstetrics & Gynecology; ATTEND Obstetrics & Gynecology
PROC: 10E0XZZ Delivery of Products of Conception, External Approach (ICD-10-PCS; principal; 2017-03-24)
PROC: 3E0P7VZ Introduction of Hormone into Female Reproductive, Via Natural or Artificial Opening (ICD-10-PCS; 2017-03-24)
PROC: 10907ZC Drainage of Amniotic Fluid, Therapeutic from Products of Conception, Via Natural or Artificial Opening (ICD-10-PCS; 2017-03-24)
DX: O40.3XX0 Polyhydramnios, third trimester, not applicable or unspecified (principal); O98.12 Syphilis complicating childbirth; O72.1 Other immediate postpartum hemorrhage; O99.824 Streptococcus B carrier state complicating childbirth; Z3A.40 40 weeks gestation of pregnancy; Z37.0 Single live birth
CPT/HCPCS: 36415; 59409; 85027; 86592; 86850; 86870; 86900; 86901; A9270-GY; J0290; J0561; J2300; J2590; J7030; J7120

== ENCOUNTER 2017-03-30 10:43 | Emergency (ER) | payer MEDICAID ==
[2017-03-30 10:58] VITALS: BP 119/80
--- NOTE | 2017-03-30 11:00 | EDM.PDOC ---
ED HPI GENERAL MEDICAL PROBLEM - General Chief Complaint: Lower Extremity Injury/Pain Stated Complaint: RIGHT LEG PAIN-POSS. BLOOD CLOT Time Seen by Provider: 03/30/17 10:59 Source of Information: Reports: Patient - History of Present Illness INITIAL COMMENTS - FREE TEXT/NARRATIVE: Patient is here for evaluation of swelling/pain to posterior aspect of right calf. Pain reportedly started after vaginal delivery 03/24/17. Patient states pain is worse in the mornings, improves with movement throughout the day. She does not feel it is severe enough to take any pain medication, states pain mostly resolves with rest. Patient states swelling is gone in the am and worsens throughout the day. Patient is post- 6 days. Denies any dyspnea or chest pain. She denies and history of vascular clots, does have a hx of vaginal bleeding/ clotting s/p vaginal delivery. Patient has sickle cell trait. Otherwise healthy, no chronic disease or daily medications. Right Lower Leg Pain Score (Numeric/FACES): 8 - Related Data Allergies Allergy/AdvReac Type Severity Reaction Status Date / Time No Known Allergies Allergy Verified 03/30/17 10:58 Home Meds: Home Meds #103/Iron Fumarate/Fa [ ] 1 dose PO DAILY 08/01/16 [ History] Acyclovir [Zovirax] 1 tab PO Q12HR 03/24/17 [History] Acetaminophen [Tylenol] 650 mg PO Q4H PRN tablet 03/26/17 [Rx] Ibuprofen [IJD: Ibuprofen] 600 mg PO Q6H PRN tablet 03/26/17 [Rx] Past Medical History - Past Health History Medical/Surgical History: Denies Medical/Surgical History CHAR PULLER History: Reports: , Spontaneous Other OB/BYN History: D&C Hematologic History: Reports: Blood Transfusion(s), Other (See Below) (Sickle cell trait) Other Hematologic History: trait of sickle cell, 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 - Infectious Disease History Infectious Disease History: Reports: Other (See Below) (Syphilis) Other Infectious Disease History: syphillis-being treated for positive titer - Past Surgical History Female Surgical History: Reports: D&C Social & Family History - Tobacco Use Smoking Status *Q: Never Smoker Second Hand Smoke Exposure: No - Caffeine Use Caffeine Use: Reports: Soda - Recreational Drug Use Recreational Drug Use: No Review of Systems - Review of Systems Review Of Systems: See Below Constitutional: Reports: No Symptoms Respiratory: Reports: No Symptoms Cardiovascular: Reports: No Symptoms (NO chest pain or dyspnea.) Genitourinary: Reports: Vaginal Bleeding (Post , no clots) Musculoskeletal: Reports: Leg Pain (Posterior right calf swelling) Skin: Reports: No Symptoms Neurological: Reports: No Symptoms ED EXAM, GENERAL - Physical Exam Exam: See Below General Appearance: Alert, WD/WN, No Apparent Distress Respiratory/Chest: No Respiratory Distress, Lungs Clear, Normal Breath Sounds Cardiovascular: Normal Peripheral Pulses, Regular Rate, Rhythm, No Murmur Extremities: Normal Inspection, Normal Range of Motion, Other (Right posterior calf tenderness, Negative tommy sign. Calf circumference 0.5cm greater on LEFT (non-painful) calf. ) Neurological: Alert, Oriented, Other Psychiatric: Normal Affect Skin Exam: Warm, Dry, Intact Course - Vital Signs Last Recorded V/S: Last Vital Signs Temp 97.4 F 03/30/17 10:56 Pulse 65 03/30/17 10:56 Resp 17 03/30/17 10:56 BP 119/80 03/30/17 10:56 Pulse Ox 100 03/30/17 10:56 - Orders/Labs/Meds Labs: Laboratory Tests 03/30/17 03/30/17 03/30/17 Range/Units 11:26 11:26 11:26 WBC 7.55 (3.98-10.04) K/mm3 RBC 3.88 L (3.98-5.22) M/mm3 Hgb 10.6 L (11.2-15.7) gm/L Hct 32.8 L (34.1-44.9) % MCV 84.5 (79.4-94.8) fl MCH 27.3 (25.6-32.2) pg MCHC 32.3 (32.2-35.5) g/dl RDW Std Deviation 42.8 (36.4-46.3) fL Plt Count 260 (182-369) K/mm3 MPV 9.4 (9.4-12.3) fl Neutrophils % (Manual) 62 H (40-60) % Band Neutrophils % 0 (0-10) % Lymphocytes % (Manual) 28 (20-40) % Atypical Lymphs % 0 % Monocytes % (Manual) 6 (2-10) % Eosinophils % (Manual) 4 (0.7-5.8) % Basophils % (Manual) 0 L (0.1-1.2) Platelet Estimate Adequate RBC Morph Comment Normal PT 10.0 (8.0-13.0) SECONDS INR 0.92 Sodium 139 (136-145) mEq/L Potassium 4.1 (3.5-5.1) mEq/L Chloride 104 (98-107) mEq/L Carbon Dioxide 24 (21-32) mEq/L Anion Gap 15.1 H (5-15) BUN 11 (7-18) mg/dL Creatinine 0.6 (0.55-1.02) mg/dL Est Cr Clr Drug Dosing 112.38 mL/min Estimated GFR (MDRD) > 60 (>60) mL/min BUN/Creatinine Ratio 18.3 H (14-18) Glucose 90 (74-106) mg/dL Calcium 9.5 (8.5-10.1) mg/dL Total Bilirubin 0.2 (0.2-1.0) mg/dL AST 22 (15-37) U/L ALT 59 (14-59) U/L Alkaline Phosphatase 143 H (46-116) U/L Total Protein 7.5 (6.4-8.2) g/dl Albumin 2.9 L (3.4-5.0) g/dl Globulin 4.6 gm/dL Albumin/Globulin Ratio 0.6 L (1-2) - Re-Assessments/Exams Free Text/Narrative Re-Assessment/Exam: Patient complaints of right posterior calf pain, she is x6 days. Patient has swelling currently, her right calf actually slightly smaller than her left. Homans sign negative. She has no chest pain/dyspnea. Mild anemia, likely due to recent vaginal delivery. D-dimer not checked as this would not be accurate indication of thrombus . Ultrasound demonstrates no evidence of deep vein thrombosis within the right lower extremity or within the left common femoral vein. Her symptoms do sound more musculoskeletal. Recommend rest/activity as tolerated, frequent stretching. Tylenol or warm compresses as needed for pain. Patient is to follow-up with PCP next week or certainly return to the emergency room if any worsening of symptoms and she verbalized understanding of this. 03/30/17 12:57 Departure - Departure Time of Disposition: 12:49 Disposition: Home, Self-Care 01 Condition: Good Clinical Impression: Right calf pain - Discharge Information Instructions: Muscle Strain, [id number] Referrals: Zaira Medina MD [Primary Care Provider] - Forms: ED Department Discharge Additional Instructions: US demonstrates NO blood clot. I think your pain is muscular strain/irritation. Rest, activity as tolerated. Stretch both legs and apply warm compresses as needed. You may use Tylenol for pain. Follow-up with a primary provider within the week if symptoms do not improve. You certainly may return to the emergency room if any worsening in symptoms or swelling, any dizziness/shortness of breath or chest pain.
--- NOTE | 2017-03-30 12:35 | US ---
Right lower extremity deep venous ultrasound: Duplex and color flow imaging was obtained of the right common femoral, proximal greater saphenous, superficial femoral, popliteal, posterior tibial and peroneal veins. Left common femoral vein was also evaluated. Normal phasic flow, augmentation and compression is seen. Impression: 1. No evidence of deep venous thrombosis within the right lower extremity or within the left common femoral vein. Diagnostic code #1
== END 2017-03-30 13:14 | disposition home or self-care (01) ==
LOC: JD.ED 10:43
DX: O90.89 Other complications of the puerperium, not elsewhere classified (principal); M79.661 Pain in right lower leg
CPT/HCPCS: 36415; 80053; 85025; 85610; 93971-26-RT; 93971-RT; 99283; 99284-25

== ENCOUNTER 2017-08-24 15:27 | Emergency (ER) | payer MEDICAID ==
[2017-08-24] MEDS ORDERED: Sodium Chloride 0.9% 10 ML Syringe FLUSH PRN (15:46)
[2017-08-24] MEDS ORDERED: Ondansetron 4 MG/2 ML SDV IVPUSH ONE (15:48)
[2017-08-24] MEDS ORDERED: HYDROmorphone 0.5 MG/0.5 ML SYRINGE IVPUSH ONE (15:48)
[2017-08-24] MEDS ORDERED: Sodium Chloride 0.9% 1,000 ML IV SCH (16:00)
--- NOTE | 2017-08-24 16:06 | EDM.PDOC ---
ED HPI GENERAL MEDICAL PROBLEM - General Chief Complaint: Headache Stated Complaint: [facility] Time Seen by Provider: 08/24/17 15:42 Source of Information: Reports: Patient History Limitations: Reports: No Limitations - History of Present Illness INITIAL COMMENTS - FREE TEXT/NARRATIVE: The patient presents with a headache. She had a lumbar puncture on Tuesday in [place] and when she got home to [place] she started having a headache that is much worse now. The headache is made worse by her standing up. She has nausea and vomiting. She denies fever, chills, cough, chest pain, abdominal pain, nausea or vomiting. She says she gets short of breath when she stands up. She has no numbness or weakness. She has no blurred or double vision. She says the did the LP to help rule out an infection. She says everything checked out okay. Onset: Gradual Duration: Day(s): (Since Tuesday) Location: Reports: Head Quality: Reports: Sharp Severity: Severe Improves with: Reports: Other (Laying down) Worsens with: Reports: Other (Standing up) Associated Symptoms: Reports: Headaches, Nausea/Vomiting, Shortness of Breath. 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 Hematologic History: Reports: Blood Transfusion(s), Other (See Below) Other Hematologic History: trait of sickle cell, 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 - Infectious Disease History Infectious Disease History: Reports: Other (See Below) Other Infectious Disease History: syphillis- - Past Surgical History Female Surgical History: Reports: D&C Social & Family History - Tobacco Use Smoking Status *Q: Never Smoker - Caffeine Use Caffeine Use: Reports: None - Recreational Drug Use Recreational Drug Use: No ED ROS GENERAL - Review of Systems Review Of Systems: See Below Constitutional: Reports: No Symptoms HEENT: Reports: No Symptoms Respiratory: Reports: No Symptoms Cardiovascular: Reports: No Symptoms Endocrine: Reports: No Symptoms GI/Abdominal: Reports: Nausea, Vomiting : Reports: No Symptoms Musculoskeletal: Reports: No Symptoms Skin: Reports: No Symptoms Neurological: Reports: Headache - Physical Exam Exam: See Below Exam Limited By: No Limitations General Appearance: Alert, No Apparent Distress Ears: Normal External Exam Nose: Normal Inspection Head Exam: Atraumatic, Normocephalic Neck: Normal Inspection Respiratory/Chest: No Respiratory Distress, Lungs Clear, Normal Breath Sounds Cardiovascular: Regular Rate, Rhythm, No Edema, No Murmur GI/Abdominal: Soft, Non-Tender, No Organomegaly, No Mass Neuro Exam (Abbreviated): Alert, Oriented, No Motor/Sensory Deficits Extremities: Normal Inspection Course - Vital Signs Last Recorded V/S: Last Vital Signs Temp 99.3 F 08/24/17 15:33 Pulse 52 L 08/24/17 15:33 Resp 18 08/24/17 15:33 BP 129/68 08/24/17 15:33 Pulse Ox 97 08/24/17 15:33 - Orders/Labs/Meds Orders: Active Orders 24 hr Category Date Time Status Cardiac Monitoring [RC] . DIRECTED Care 08/24/17 15:46 Active Peripheral IV Care [RC] . DIRECTED Care 08/24/17 15:47 Active Lactated Ringers [Ringers, Lactated] 1,000 ml Med 08/24/17 16:07 Active IV .BOLUS Sodium Chloride 0.9% [Normal Saline] 1,000 ml Med 08/24/17 16:00 Active IV .BOLUS Sodium Chloride 0.9% [Saline Flush] Med 08/24/17 15:46 Active 10 ml FLUSH ASDIRECTED PRN Peripheral IV Insertion Adult [OM.PC] Stat Oth 08/24/17 15:46 Ordered Medication Orders Sodium Chloride (Normal Saline) 1,000 mls @ 1,000 mls/hr IV .BOLUS CYNTHIA Lactated Ringer's (Ringers, Lactated) 1,000 mls @ 999 mls/hr IV .BOLUS ONE Stop: 08/24/17 17:07 Last Admin: 08/24/17 16:00 Dose: 999 mls/hr Sodium Chloride (Saline Flush) 10 ml FLUSH ASDIRECTED PRN PRN Reason: Keep Vein Open Last Admin: 08/24/17 16:07 Dose: 10 ml Labs: Laboratory Tests 08/24/17 08/24/17 Range/Units 16:00 16:00 WBC 5.55 (3.98-10.04) K/mm3 RBC 4.95 (3.98-5.22) M/mm3 Hgb 12.9 (11.2-15.7) gm/L Hct 39.2 (34.1-44.9) % MCV 79.2 L (79.4-94.8) fl MCH 26.1 (25.6-32.2) pg MCHC 32.9 (32.2-35.5) g/dl RDW Std Deviation 43.5 (36.4-46.3) fL Plt Count 313 (182-369) K/mm3 MPV 9.9 (9.4-12.3) fl Neut % (Auto) 62.6 (34.0-71.1) % Lymph % (Auto) 23.6 (19.3-51.7) % [place] % (Auto) 10.8 (4.7-12.5) % Eos % (Auto) 2.2 (0.7-5.8) Baso % (Auto) 0.4 (0.1-1.2) % Neut # (Auto) 3.48 (1.56-6.13) K/mm3 Lymph # (Auto) 1.31 (1.18-3.74) K/mm3 [place] # (Auto) 0.60 H (0.24-0.36) K/mm3 Eos # (Auto) 0.12 (0.04-0.36) K/mm3 Baso # (Auto) 0.02 (0.01-0.08) K/mm3 Sodium 139 (136-145) mEq/L Potassium 4.0 (3.5-5.1) mEq/L Chloride 103 (98-107) mEq/L Carbon Dioxide 24 (21-32) mEq/L Anion Gap 16.0 H (5-15) BUN 10 (7-18) mg/dL Creatinine 0.8 (0.55-1.02) mg/dL Est Cr Clr Drug Dosing 84.28 mL/min Estimated GFR (MDRD) > 60 (>60) mL/min BUN/Creatinine Ratio 12.5 L (14-18) Glucose 78 (74-106) mg/dL Calcium 9.4 (8.5-10.1) mg/dL Total Bilirubin 0.5 (0.2-1.0) mg/dL AST 15 (15-37) U/L ALT 35 (14-59) U/L Alkaline Phosphatase 90 (46-116) U/L Total Protein 8.8 H (6.4-8.2) g/dl Albumin 4.1 (3.4-5.0) g/dl Globulin 4.7 gm/dL Albumin/Globulin Ratio 0.9 L (1-2) Meds: Medications Generic Name Dose Route Start Last Admin Trade Name Freq PRN Reason Stop Dose Admin Sodium Chloride 1,000 mls @ 1,000 mls/hr 08/24/17 16:00 Normal Saline IV .BOLUS CYNTHIA Lactated Ringer's 1,000 mls @ 999 mls/hr 08/24/17 16:07 08/24/17 16:00 Ringers, Lactated IV 08/24/17 17:07 999 mls/hr .BOLUS ONE Administration Sodium Chloride 10 ml 08/24/17 15:46 08/24/17 16:07 Saline Flush FLUSH 10 ml ASDIRECTED PRN Administration Keep Vein Open Discontinued Medications Generic Name Dose Route Start Last Admin Trade Name Freq PRN Reason Stop Dose Admin Hydromorphone HCl 0.5 mg 08/24/17 15:48 08/24/17 16:06 Dilaudid IVPUSH 08/24/17 15:49 0.5 mg ONETIME ONE Administration Ondansetron HCl 4 mg 08/24/17 15:48 08/24/17 16:05 Zofran IVPUSH 08/24/17 15:49 4 mg ONETIME ONE Administration - Re-Assessments/Exams Free Text/Narrative Re-Assessment/Exam: 08/24/17 16:08 I ordered an IV NS 1L bolus, zofran 4mg IV, dilaudid 0.5mg IV, and labs. I had my nurse call our [employer] hot iron worker to come do a blood patch. 08/24/17 17:06 Lilian our [employer] came to do the blood patch. The patient was not very cooperative. She was nervous but she relaxed enough so Arlis can do it and she feels better. Departure - Departure Time of Disposition: 17:40 Disposition: Home, Self-Care 01 Condition: Good Clinical Impression: Spinal headache - Discharge Information Forms: ED Department Discharge Additional Instructions: Go home and rest. Take tylenol or motrin for any more pain and caffeine. Follow up with your doctor and return if you are worse. - My Orders Last 24 Hours: My Active Orders 08/24/17 15:46 Cardiac Monitoring [RC] . DIRECTED Sodium Chloride 0.9% [Saline Flush] 10 ml FLUSH ASDIRECTED PRN Peripheral IV Insertion Adult [OM.PC] Stat 08/24/17 15:47 Peripheral IV Care [RC] . DIRECTED 08/24/17 16:00 Sodium Chloride 0.9% [Normal Saline] 1,000 ml IV .BOLUS - Assessment/Plan Last 24 Hours: My Active Orders 08/24/17 15:46 Cardiac Monitoring [RC] . DIRECTED Sodium Chloride 0.9% [Saline Flush] 10 ml FLUSH ASDIRECTED PRN Peripheral IV Insertion Adult [OM.PC] Stat 08/24/17 15:47 Peripheral IV Care [RC] . DIRECTED 08/24/17 16:00 Sodium Chloride 0.9% [Normal Saline] 1,000 ml IV .BOLUS
[2017-08-24] MEDS ORDERED: Lactated Ringers 1,000 ML IV ONE (16:07)
--- NOTE | 2017-08-24 17:12 | PCM.SN ---
- Free Text/Narrative Note: [id number] Epidural blood patch. Was called in to perform epidural blood patch for a patient who had spinal tap in [place] on Tuesday for diagnosis reasons. She states everything turned out fine. Patient comes to ER by ambulance as headache is much worse today. She states she has a headache when lying down, but much worse when standing. Denies blurry or double vision. Consent signed after lengthy discussion about risks,complications and benefits. Patient in sitting position. Sterile prep and drape- multiple times patient did not cooperate with sitting still. Kept turning body and head and did not want to do it as she said she was very nervous. Reassurance given. About 40 minutes was spent trying to convince patient to hold still and cooperate. Finally agreed. 1% lidocaine 2 ml local anesthetic at L4-5. 21 g Tuohy needs with ROSEMARIE technique with saline. 20 ml blood drawn sterile per Latonia Shea RN right antecubital. Slowly injected 17 ml into epidural space. Patient denies much pelvic discomfort. Bettye procedure well. Vitals stable. Was informed to take it easy tonight- rest and no lifting. Will stay in ER for an hour lying supine. States head feels better. Previtals 124/79 97% 71 20 Post 128/65 00% 64 20
[2017-08-24 17:55] VITALS: BP 132/77
== END 2017-08-24 17:57 | disposition home or self-care (01) ==
LOC: JD.ED 15:27
DX: G97.1 Other reaction to spinal and lumbar puncture (principal); R51 Headache
CPT/HCPCS: 36415; 80053; 85025; 96374; 96375; 99285; J1170; J2405; J7050; J7120

== ENCOUNTER 2019-04-05 15:32 | Emergency (ER) | payer MEDICAID ==
[2019-04-05 15:44] VITALS: BP 108/69; PULSE 72
--- NOTE | 2019-04-05 16:29 | EDM.PDOC ---
<Ivonne Moya - Last Filed: 04/05/19 16:40> ED HPI GENERAL MEDICAL PROBLEM - General Chief Complaint: Skin Complaint Stated Complaint: SKIN COMPLAINT/RASH ON BODY Time Seen by Provider: 04/05/19 16:03 Source of Information: Reports: Patient History Limitations: Reports: No Limitations - History of Present Illness INITIAL COMMENTS - FREE TEXT/NARRATIVE: Patient is a 29-year-old female who presents for a rash that started two days ago. She states the rash started on her face then it spread to her neck, back, and both arms. She notes the rash itches and baer. When she showers the areas of skin with the rash burn severely. She has tried lotion, but this only makes it burn more. She denies any recent changes in hygiene products, laundry detergents, fabric softeners, and food. 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 Denies: Fever, Chills Respiratory: Reports: No Symptoms. Denies: Shortness of Breath Cardiovascular: Reports: No Symptoms. Denies: Chest Pain GI/Abdominal: Reports: No Symptoms. Denies: Diarrhea, Nausea Skin: Reports: Rash (papular rash on face, neck, back, and arms) Neurological: Reports: No Symptoms. Denies: Numbness, Tingling Psychiatric: Reports: No Symptoms ED EXAM, SKIN/RASH Exam: See Below Exam Limited By: No Limitations General Appearance: Alert, WD/WN, No Apparent Distress Respiratory/Chest: No Respiratory Distress, Lungs Clear, Normal Breath Sounds, Chest Non-Tender Cardiovascular: Normal Peripheral Pulses, Regular Rate, Rhythm, No Edema, No Murmur GI/Abdominal: Normal Bowel Sounds, Soft, Non-Tender, No Organomegaly, No Distention Neurological: Alert, Oriented, Normal Cognition, No Motor/Sensory Deficits Psychiatric: Normal Affect, Normal Mood Skin: Warm, Dry, Intact, Normal Color, Rash (fine papular rash, looks like permanent goosebumps, over entire back, bilateral arms, posterior neck that goes into the hair, around the ears, and on sides of face that itches and baer) Location, Skin: Face, Neck, Back, Upper Extremity, Right, Upper Extremity, Left Characteristics: Papular, Fine Associated features: No: Warmth, Tenderness Course - Vital Signs Last Recorded V/S: Last Vital Signs Temp 98.3 F 04/05/19 15:42 Pulse 72 04/05/19 15:42 Resp 16 04/05/19 15:42 BP 108/69 04/05/19 15:42 Pulse Ox 100 04/05/19 15:42 - Orders/Labs/Meds Meds: Medications Discontinued Medications Generic Name Dose Route Start Last Admin Trade Name Románq PRN Reason Stop Dose Admin Loratadine 10 mg 04/05/19 16:30 04/05/19 16:42 Claritin PO 04/05/19 16:31 10 mg ONETIME ONE Administration Prednisone 40 mg 04/05/19 16:30 04/05/19 16:42 Prednisone PO 04/05/19 16:31 40 mg ONETIME ONE Administration Departure - Departure Disposition: Home, Self-Care 01 Clinical Impression: Dermatitis - Discharge Information Prescriptions: predniSONE [Prednisone] 50 mg PO DAILY #4 tablet Instructions: Rash Referrals: PCP,None [Primary Care Provider] - Forms: ED Department Discharge Additional Instructions: Continue Claritin 10 mg daily. You've been given your first dose while here in the ED. That is available OTC. Prednisone 50 mg q AM for the next 4 days. Dry skin always does tend to be more itchy. Consider running vaporizer or humidifier if possible. Do not put any lotions or creams on your skin. Consider going to a hypo-allergenic recharge and such as cheer free. For now do not use fabric softener as that can also be irritating or cause skin reactions and itchiness. Follow-up with clinic provider if not much better within 3-4 days as expected. Return to ED for any difficulty breathing. Sepsis Event Note - Evaluation Sepsis Screening Result: No Definite Risk - Focused Exam Date Exam was Performed: 04/05/19 Time Exam was Performed: 16:40 <Jeffery Marie - Last Filed: 04/09/19 10:26> Course - Re-Assessments/Exams Free Text/Narrative Re-Assessment/Exam: 04/09/19 10:24. Initial hx and exam was done by Candelaria Omalley, P student. I agree with her hx and exam as documented. I have also interviewed and examined patient. this does not look like a systemic rash, sx are more of the itchiness so may be contact dermatitis or dry air/sensitivity. Will treat with a short course of prednisone. Departure - Departure Time of Disposition: 16:31 Condition: Fair Sepsis Event Note - Focused Exam Date Exam was Performed: 04/09/19 Time Exam was Performed: 10:24
[2019-04-05] MEDS ORDERED: predniSONE 20 MG Tab PO ONE (16:30)
[2019-04-05] MEDS ORDERED: Loratadine 10 MG Tab PO ONE (16:30)
== END 2019-04-05 16:56 | disposition home or self-care (01) ==
LOC: JD.ED 15:32
DX: L30.9 Dermatitis, unspecified (principal)
CPT/HCPCS: 99282; A9270; 99283